=== PATIENT | female | born 1935 | race Caucasian/White ===

== ENCOUNTER 2022-09-14 21:27 | Inpatient (IN) | payer MEDICARE, OTHER ==
[~2022-09-14] VITALS: Ht 162.6 cm; Wt 62.6 kg
--- NOTE | 2022-09-14 21:35 | NUR ---
[id number] AND SON FROM HOME, S/P SLIP & FALL IN KITCHEN, C/O RIGHT HIP PAIN 10/28 VICE PRESIDENT RISK MANAGEMENT. PT AAOX4, IN NAD. PLACED COMFORTABLY IN BED, VITALS CHECKED.
--- NOTE | 2022-09-14 21:46 | NUR ---
20GA TO RIGHT FOREARM ESTABLISHED
[2022-09-14] MEDS ORDERED: ONDANSETRON HCL/PF 4 MG/2 ML VIAL ONE (21:52)
[2022-09-14] MEDS ORDERED: MORPHINE SULFATE INJ 4 MG/ML DISP.SYRIN ONE (21:52)
[2022-09-14] MEDS ORDERED: MORPHINE SULFATE INJ 2 MG/ML DISP.SYRIN IV ONE (22:00)
[2022-09-14] MEDS ORDERED: ONDANSETRON HCL/PF 4 MG/2 ML VIAL IV ONE (22:00)
--- NOTE | 2022-09-14 22:31 | NUR ---
XR AT BEDSIDE
--- NOTE | 2022-09-14 23:03 | NUR ---
COVID SWAB COLLECTED, SENT TO LAB
--- NOTE | 2022-09-14 23:08 | NUR ---
EKG DONE AT BEDSIDE
--- NOTE | 2022-09-14 23:39 | NUR ---
SPRAYER HAND AT BEDSIDE
--- NOTE | 2022-09-15 00:01 | NUR ---
room [id number]
[2022-09-15 00:03] LABS: BASOPHILS % (AUTO) 0.2 % (0.0-2.0); EOSINOPHILS % (AUTO) 0.1 % (0.0-6.0); HEMATOCRIT 33 % (33-45); HEMOGLOBIN 10.9 g/dL (11.5-14.8); LYMPHOCYTES # (AUTO) 0.8 K/uL (0.8-4.8); LYMPHOCYTES % (AUTO) 6.6 % (20.0-44.0); MEAN CORPUSCULAR HGB CONC 33 g/dl (31.0-36.0); MEAN CORPUSCULAR VOLUME 97 fL (82-100); MONOCYTES # (AUTO) 0.7 K/uL (0.1-1.30); MONOCYTES % (AUTO) 5.8 % (2.0-12.0); NEUTROPHILS # (AUTO) 11.1 K/uL (1.8-8.9); NEUTROPHILS % (AUTO) 87.3 % (43.0-81.0); PLATELET COUNT (AUTO) 226 K/uL (150-450); RED BLOOD CELL COUNT(AUTO) 3.42 MIL/uL (4.0-5.2); WHITE BLOOD COUNT (AUTO) 12.7 K/uL (4.3-11.0)
[2022-09-15] MEDS ORDERED: ONDANSETRON HCL/PF 4 MG/2 ML VIAL ONE (00:04)
[2022-09-15] MEDS ORDERED: HYDROCODONE/APAP 5/325MG TABLET PO PRN (00:30)
[2022-09-15] MEDS ORDERED: ONDANSETRON HCL/PF 4 MG/2 ML VIAL IVP ONE (00:30)
[2022-09-15] MEDS ORDERED: Z GUARD REMEDY 4 OZ OINT TP PRN (00:30)
[2022-09-15] MEDS ORDERED: MAGNESIUM HYDROXIDE 30 ML UDC PO PRN (00:30)
[2022-09-15] MEDS ORDERED: MORPHINE SULFATE INJ 2 MG/ML DISP.SYRIN IV PRN (00:30)
[2022-09-15] MEDS ORDERED: ZOLPIDEM TARTRATE 5 MG TABLET PO PRN (00:30)
[2022-09-15] MEDS ORDERED: MAG HYDROX/AL HYDROX/SIMETH 30 ML UDC PO PRN (00:30)
--- NOTE | 2022-09-15 00:30 | NUR ---
REPORT GIVEN TO SHREE LUU
--- NOTE | 2022-09-15 00:33 | NUR ---
LAB CALLED FOR COVID ANTIGEN RESULT; STILL NOT RESULTED
[2022-09-15 00:36] LABS: CALCIUM, SERUM 8.9 mg/dL (8.5-10.1); CARBON DIOXIDE 23 mmol/L (21-32); CHLORIDE 104 mmol/L (98-107); CREATININE 0.7 mg/dL (0.6-1.3); GLUCOSE 112 mg/dL (74-106); POTASSIUM 3.8 mmol/L (3.5-5.1); SODIUM SERUM 138 mmol/L (136-145); UREA NITROGEN, BLOOD 20 mg/dL (7-18)
--- NOTE | 2022-09-15 01:15 | NUR ---
MS METAL WASHING MACHINE OPERATOR NOTES RECEIVED NEW ADMIT THIS 86 YO FEMALE,ACCOMPANIED BY SON ULISSES.ALERT,ORIENTED X3-4,FARSI SPEAKING,ALL INFORMATION TAKEN FROM SON.CHIEF COMPLAINTS OF RIGHT HIP PAIN,S/P SLIPPED AND FALL AT HOME IN THE KITCHEN,SUSTAINED FRACTURE ON RIGHT PUBIC RAMUS.NO SKIN ISSUES.WITH RIGHT FORE ARM SALINE LOCK INTACT AND PATENT.VACCINATED COMPLETELY WITH COVID VACCINE.VITAL SIGNS STABLE.CALL LIGHT IN REACH,NEEDS ANTICIPATED.
[2022-09-15 01:25] VITALS: BP 125/63
[2022-09-15 01:30] VITALS: BP 125/63
--- NOTE | 2022-09-15 01:30 | NUR ---
MS RN NOTES PUREWICK STARTED CONNECTED TO WALL SUCTION.
--- NOTE | 2022-09-15 02:15 | NUR ---
MS RN NOTES BLOOD PRESSURE READING THIS TIME 98/55. HOSPITALIST MADE AWARE WITH ORDERS NOTED AND CARRIED OUT.
[2022-09-15] MEDS ORDERED: IV NS 0.9% 500 ML IV ONE (02:30)
--- NOTE | 2022-09-15 02:33 | NUR ---
MS RN NOTES NS 500ML BOLUS WIDE OPEN STARTED,WITH ORDERS BY HOSPITALIST SHAD
--- NOTE | 2022-09-15 03:00 | NUR ---
MS RN NOTES NS BOLUS 500ML COMPLETED.NO FLUID OVERLOAD NOTED,BP RE CHECK WAS 107/63,PULSE- 77.
[2022-09-15] MEDS: IV NS 0.9% 1,000 ML IV PRN ×2 (03:11→15:42)
--- NOTE | 2022-09-15 03:11 | NUR ---
MS RN NOTES MAIN IVF NS AT 75ML/HR RATE STARTED.
[2022-09-15] MEDS ORDERED: NITROFURANTOIN MACROCRYSTAL 50 MG CAPSULE PO SCH (06:00)
[2022-09-15 06:29] LABS: BASOPHILS % (AUTO) 0.1 % (0.0-2.0); EOSINOPHILS % (AUTO) 0.1 % (0.0-6.0); HEMATOCRIT 30 % (33-45); HEMOGLOBIN 9.9 g/dL (11.5-14.8); LYMPHOCYTES # (AUTO) 0.5 K/uL (0.8-4.8); LYMPHOCYTES % (AUTO) 4.4 % (20.0-44.0); MEAN CORPUSCULAR HGB CONC 33 g/dl (31.0-36.0); MEAN CORPUSCULAR VOLUME 97 fL (82-100); MONOCYTES # (AUTO) 0.5 K/uL (0.1-1.30); MONOCYTES % (AUTO) 4.4 % (2.0-12.0); NEUTROPHILS # (AUTO) 10.4 K/uL (1.8-8.9); PLATELET COUNT (AUTO) 208 K/uL (150-450); RED BLOOD CELL COUNT(AUTO) 3.06 MIL/uL (4.0-5.2); WHITE BLOOD COUNT (AUTO) 11.4 K/uL (4.3-11.0)
[2022-09-15] MEDS: ACETAMINOPHEN 325 MG TABLET PO PRN (06:42)
--- NOTE | 2022-09-15 06:42 | NUR ---
MS RN NOTES C/O HEADACHE,TYLENOL 650MG PO GIVEN ORDERED.NO N/V NOTED.
[2022-09-15 06:49] LABS: CALCIUM, SERUM 8.2 mg/dL (8.5-10.1); CREATININE 0.7 mg/dL (0.6-1.3); MAGNESIUM 1.8 mg/dL (1.8-2.4); PHOSPHORUS 4.7 mg/dL (2.5-4.9); POTASSIUM 3.9 mmol/L (3.5-5.1)
[2022-09-15 06:57] LABS: THYROID STIMULATING HORMONE 0.664 uIU/mL (0.358-3.74)
--- NOTE | 2022-09-15 07:00 | NUR ---
MS RN NOTES NO ACTIVE N/V NOTED.INCONTINENT OF URINE.IN NO ACUTE DISTRESS.WILL ENDORSE TO DAY NURSE FOR MCKENZIE.
--- NOTE | 2022-09-15 07:46 | NUR ---
RN OPENING NOTES RECIEVED PATIENT LYING ON BED A/O X4, FARSI SPEAKING. ON ROOM AIR WITH NO SOB OR RESPIRATORY DISTRESS NOTED. WITH IV ACCESS ON RIGHT FOREMARM #20G, INFUSING D5NS AT 75L/HR. KEPT PATIENT COMFORTABLE IN BED, CURRENTLY PATIENT IS NOT IN PAIN. SAFETY PRECAUTION MAINTAINED: BED IN LOWEST LOCKED POSITION, SIDERAILS ARE UP X2, CALL LIGHT WITHIN REACH. WILL CONTINUE TO MONITOR.
[2022-09-15] MEDS: predniSONE 1 MG TABLET PO SCH (08:41)
[2022-09-15] MEDS: NITROFURANTOIN/MONOHYDRATE MACROCRYSTALS 100 MG CAPSULE PO SCH ×2 (08:41→21:42)
[2022-09-15] MEDS: ENOXAPARIN SODIUM 40 MG/0.4 ML DISP.SYRIN SQ SCH (08:46)
[2022-09-15] MEDS ORDERED: AMLODIPINE BESYLATE 5 MG TABLET PO SCH (09:00)
[2022-09-15] MEDS ORDERED: LOSARTAN POTASSIUM 50 MG TABLET PO SCH (09:00)
[2022-09-15] MEDS: ONDANSETRON HCL/PF 4 MG/2 ML VIAL IVP PRN ×2 (09:29→16:29)
[2022-09-15] MEDS ORDERED: LOSA50TA39 PO (10:02)
[2022-09-15] MEDS ORDERED: AMLO-212 PO (10:02)
[2022-09-15] MEDS ORDERED: NITR50CA51 PO (10:02)
[2022-09-15] MEDS ORDERED: ALPR0.5T8 PO (10:02)
[2022-09-15] MEDS ORDERED: METH2.5T14 PO (10:02)
[2022-09-15] MEDS ORDERED: UPAD15TA PO (10:02)
[2022-09-15 10:54] VITALS: BP 122/69
[2022-09-15] MEDS ORDERED: FLUO10CA26 PO (11:52)
[2022-09-15] MEDS ORDERED: PRED1TAB PO (11:52)
[2022-09-15] MEDS ORDERED: ATOR40TA PO (11:54)
--- NOTE | 2022-09-15 13:00 | NUR ---
RN NOTE FAMILY WAS NOTIFIED TO BRING HER MEDICATION RINVOQ.
[2022-09-15 16:28] VITALS: BP 132/70
[2022-09-15] MEDS: LOSARTAN POTASSIUM 50 MG TABLET PO SCH (16:50)
--- NOTE | 2022-09-15 18:52 | NUR ---
RN CLOSING NOTE PATIENT IS ON BED A/O X4 FARSI SPEAKING, ON MODERATE HIGH BACK REST. ON ROOM AIR NO SOB AND RESPIRATORY DISTRESS. WITH IV ACCESS ON HER RIGHT FOREARM #20G INFUSING TO NS AT 75ML/HR, INTACT AND PATENT. KEPT PATIENT COMFORTABLE. SAFETY PRECAUTION IN PLACE, BED ON LOWEST LOCKED POSITION, SIDERAILS UP X2, CALL LIGHT WITHIN REACH. ALL NEEDS ARE MET AT THIS TIME.
--- NOTE | 2022-09-15 19:35 | NUR ---
RN Opening Note Received patient in bed; awake, alert and oriented x 4. Farsi speaking. On room air; tolerating well. Not in any form of respiratory or cardiac distress noted at this time. No c/o pain or discomfort. With IV access on right forearm 20g; patent and intact infusing with NS 1L regulated @ 75 ml/hr; flushes well. Able to make needs known. Safety precautions implemented: call light and table within reach, side rails up x 3, bed in lowest locked position. Will continue to monitor throughout shift.
[2022-09-15 20:00] VITALS: BP 126/65
[2022-09-15 20:28] VITALS: BP 126/65
[2022-09-15] MEDS: ATORVASTATIN 40 MG TABLET PO SCH (21:42)
[2022-09-16] MEDS: IBUPROFEN 600 MG TABLET PO PRN ×3 (00:33→20:58)
--- NOTE | 2022-09-16 00:33 | NUR ---
RN Note Patient complained of pain on her head (while holding her head). PRN Motrin 600 mg 1 tab given po as ordered; tolerated well. Will continue to monitor and reassess patient.
[2022-09-16] MEDS: ALPRAZOLAM 0.5 MG TABLET PO PRN ×2 (01:22→23:40)
[2022-09-16 05:53] LABS: BASOPHILS % (AUTO) 0.2 % (0.0-2.0); EOSINOPHILS % (AUTO) 0.5 % (0.0-6.0); HEMATOCRIT 29 % (33-45); HEMOGLOBIN 9.7 g/dL (11.5-14.8); LYMPHOCYTES # (AUTO) 0.7 K/uL (0.8-4.8); LYMPHOCYTES % (AUTO) 8.9 % (20.0-44.0); MEAN CORPUSCULAR HGB CONC 33 g/dl (31.0-36.0); MEAN CORPUSCULAR VOLUME 99 fL (82-100); MONOCYTES # (AUTO) 0.4 K/uL (0.1-1.30); NEUTROPHILS # (AUTO) 7.1 K/uL (1.8-8.9); NEUTROPHILS % (AUTO) 85.4 % (43.0-81.0); PLATELET COUNT (AUTO) 189 K/uL (150-450); RED BLOOD CELL COUNT(AUTO) 2.97 MIL/uL (4.0-5.2); WHITE BLOOD COUNT (AUTO) 8.3 K/uL (4.3-11.0)
[2022-09-16 05:58] LABS: CALCIUM, SERUM 7.9 mg/dL (8.5-10.1); CREATININE 0.6 mg/dL (0.6-1.3); POTASSIUM 3.9 mmol/L (3.5-5.1)
--- NOTE | 2022-09-16 06:50 | NUR ---
RN Closing Note Patient in bed; awake, a/o x 4. Stable on room air. In no acute distress. Denies any pain or discomfort. With IV access on right wrist 20g; patent and intact infusing with NS 1L regulated @ 75 ml/hr; flushes well. All needs attended. All due meds given as ordered. Safety precautions maintained: call light and table within reach, side rails up x 2, bed in lowest locked position. Endorsed to morning shift for continuity of care.
--- NOTE | 2022-09-16 07:30 | NUR ---
RN MS NOTES PT IN BED, AWAKE, ALERT AND ORIENTED, NO COMPLAINT OF PAIN AT THIS TIME, RESPIRATIONS NORMAL, CALL LIGHT WITHIN REACH, IV FLUIDS INFUSING WELL, KEPT WARM AND COMFORTABLE IN BED.
[2022-09-16 08:25] VITALS: BP 139/68
[2022-09-16] MEDS: predniSONE 1 MG TABLET PO SCH ×2 (08:30→09:00)
[2022-09-16] MEDS: AMLODIPINE BESYLATE 5 MG TABLET PO SCH (08:30)
[2022-09-16] MEDS: NITROFURANTOIN/MONOHYDRATE MACROCRYSTALS 100 MG CAPSULE PO SCH ×2 (08:30→20:58)
[2022-09-16] MEDS: LOSARTAN POTASSIUM 50 MG TABLET PO SCH ×2 (08:30→16:52)
[2022-09-16] MEDS: ENOXAPARIN SODIUM 40 MG/0.4 ML DISP.SYRIN SQ SCH (08:31)
--- NOTE | 2022-09-16 11:03 | NUR ---
RN MS NOTES PT SEEN BY PHYSICAL THERAPIST, PAIN MEDS GIVEN PRIOR, TOLERATED ACTIVITY WELL, SON DR. GTZ AT BEDSIDE, DISCHARGE PLAN DISCUSSED WITH SHOP SERVICE TECHNICIAN CAMILO.
[2022-09-16] MEDS: HOME MED MISCELLANEOUS PO SCH (13:41)
[2022-09-16 15:53] VITALS: BP 125/72
--- NOTE | 2022-09-16 18:02 | NUR ---
RN MS NOTES PT IN BED, AWAKE, ALERT AND ORIENTED, EATING DINNER, VISITED BY FAMILY MEMBERS, NO COMPLAINT OF PAIN OR ANY DISCOMFORT, BREATHING PATTERN NORMAL, CALL LIGHT WITHIN REACH AT ALL TIMES, PM CARE PROVIDED, REPOSITIONED FOR COMFORT, ALL NEEDS ATTENDED.
--- NOTE | 2022-09-16 19:35 | NUR ---
MSRN ASLEEP, EASILY AWAKENED WHEN CALLED. APPEARS COMFORTABLE. NO NEEDS OF THIS TIME, KEPT COMFORTABLE. CLOSELY WATCHED.
[2022-09-16 20:00] VITALS: BP 143/80
--- NOTE | 2022-09-16 21:00 | NUR ---
MSRN VERBALIZES RIGHT PELVIC PAIN WANTED MOTRIN. ADMINISTERED ORDERED. POSITIONED PER PATIENTS COMFORT.
[2022-09-16] MEDS: ATORVASTATIN 40 MG TABLET PO SCH (21:07)
--- NOTE | 2022-09-16 23:40 | NUR ---
MSRN REQUESTED FOR XANAX.ADMINISTERED. REPOSITIONED PER PT COMFORT SUPPORTED WITH PILLOWS. KEPT CLEAN DRY AND COMFORTABLE.
--- NOTE | 2022-09-17 06:54 | NUR ---
MSRN NO OTHER NEEDS MADE. SLEPT WELL POST XANAX.
--- NOTE | 2022-09-17 07:30 | NUR ---
Pt is A,A,Ox 4. Denies pain, all needs are met at this time.
--- NOTE | 2022-09-17 07:30 | NUR ---
RN MS NOTES PT IN BED, AWAKE, ALERT AND ORIENTED, NO COMPLAINT OF PAIN AT THIS TIME, BREATHING PATTERN NORMAL, CALL LIGHT WITHIN REACH, REPOSITIONED FOR COMFORT, ASSISTED WITH BREAKFAST.
[2022-09-17 08:00] VITALS: BP 111/55
[2022-09-17] MEDS: AMLODIPINE BESYLATE 5 MG TABLET PO SCH (09:00)
[2022-09-17] MEDS: LOSARTAN POTASSIUM 50 MG TABLET PO SCH ×2 (09:00→17:06)
[2022-09-17] MEDS: HOME MED MISCELLANEOUS PO SCH (09:11)
[2022-09-17] MEDS: NITROFURANTOIN/MONOHYDRATE MACROCRYSTALS 100 MG CAPSULE PO SCH ×2 (09:11→21:07)
[2022-09-17] MEDS: predniSONE 1 MG TABLET PO SCH (09:13)
[2022-09-17] MEDS: ENOXAPARIN SODIUM 40 MG/0.4 ML DISP.SYRIN SQ SCH (09:26)
[2022-09-17] MEDS: IBUPROFEN 600 MG TABLET PO PRN (10:39)
--- NOTE | 2022-09-17 11:30 | NUR ---
RN MS NOTES PT IN BED, AWAKE, ALERT AND ORIENTED, PAIN MEDICATION GIVEN FOR PAIN MANAGEMENT, ASSISTED WITH LUNCH, PT HAD PHYSICAL THERAPY TREATMENT, TOLERATED WELL, KEPT COMFORTABLE IN BED.
[2022-09-17 16:05] VITALS: BP 148/72
--- NOTE | 2022-09-17 18:30 | NUR ---
183: RN MS CLOSING NOTES PT IN BED IN SEMI-JENSEN'S POSITION, AWAKE, ALERT & ORIENTED X 4, WATCHING TV. BED RAILS UP, CALL LIGHT WITHIN REACH. RESPIRATIONS ARE EVEN AND UNLABORED. PT DENIES PAIN AT THIS TIME. PT CONSUMED 90 PERCENT OF HER DINNER. ALL NEEDS ARE MET AT THIS TIME.
--- NOTE | 2022-09-17 19:23 | NUR ---
MS RN OPENING NOTE RECEIVED PT AWAKE IN BED, LISTENING TO MUSIC. A/O X4, FARSI SPEAKING, AND ABLE TO MAKE NEEDS KNOWN. PT STABLE ON ROOM AIR, TOLERATING WELL. NO SOB OR S/S OF RESPIRATORY DISTRESS. BREATHING EVEN AND UNLABORED. IV ACCESS R WRIST 20G SL, INTACT AND PATENT. NO COMPLAINTS OF PAIN OR DISCOMFORT AT THIS TIME. SAFETY PRECAUTIONS IN PLACE. BED IN LOWEST LOCKED POSITION, HOB ELEVATED, SIDE RAILS UP X2, AND CALL LIGHT AND TABLE WITHIN REACH. ALL NEEDS MET AT THIS TIME.
[2022-09-17 19:54] VITALS: BP 138/64
[2022-09-17] MEDS: ATORVASTATIN 40 MG TABLET PO SCH (21:07)
[2022-09-17] MEDS: ALPRAZOLAM 0.5 MG TABLET PO PRN (21:07)
--- NOTE | 2022-09-17 21:08 | NUR ---
RN NOTE PT REQUESTED XANAX. ADMINISTERED XANAX 0.5 MG FOR ANXIETY ORDERED. MADE COMFORTABLE IN BED. ALL NEEDS MET AT THIS TIME.
--- NOTE | 2022-09-18 06:25 | NUR ---
MS RN CLOSING NOTE PT AWAKE IN BED. A/O X4, FARSI SPEAKING, AND ABLE TO MAKE NEEDS KNOWN. PT STABLE ON ROOM AIR, TOLERATING WELL. NO SOB OR S/S OF RESPIRATORY DISTRESS. BREATHING EVEN AND UNLABORED. IV ACCESS R WRIST 20G SL, INTACT AND PATENT. NO COMPLAINTS OF PAIN OR DISCOMFORT AT THIS TIME. ALL DUE MEDS GIVEN ORDERED. KEPT CLEAN AND DRY. SAFETY PRECAUTIONS IN PLACE AT ALL TIMES. BED IN LOWEST LOCKED POSITION, HOB ELEVATED, SIDE RAILS UP X2, AND CALL LIGHT AND TABLE WITHIN REACH. ALL NEEDS MET AT THIS TIME AND WILL ENDORSE TO ONCOMING NURSE FOR MCKENZIE.
--- NOTE | 2022-09-18 07:25 | NUR ---
RN OPENING NOTE RECEIVED PATIENT IN BED AWAKE, A/O X4. VERBALLY RESPONSIVE, FARSI SPEAKING, ABLE TO UNDERSTAND SIMPLE [place]. NO SIGNS OF ACUTE DISTRESS NOTED. ON ROOM AIR, NO SOB NOTED, BREATHING EVEN AND UNLABORED. PATIENT DENIES ANY PAIN AT THIS TIME. NOTED WITH IV ACCESS ON RIGHT WRIST #20G, INTACT AND PATENT, SALINE LOCKED. SAFETY MEASURE IN PLACE. BED IN LOW AND LOCKED POSITION, SIDE RAILS UP X2, CALL LIGHT PLACED WITHIN EASY REACH. WILL CONTINUE TO MONITOR PATIENT.
[2022-09-18 07:30] VITALS: BP 157/86
[2022-09-18] MEDS: IBUPROFEN 600 MG TABLET PO PRN (08:41)
[2022-09-18] MEDS: HOME MED MISCELLANEOUS PO SCH (08:41)
[2022-09-18] MEDS: NITROFURANTOIN/MONOHYDRATE MACROCRYSTALS 100 MG CAPSULE PO SCH ×2 (08:41→21:23)
[2022-09-18] MEDS: LOSARTAN POTASSIUM 50 MG TABLET PO SCH ×2 (08:42→16:31)
[2022-09-18] MEDS: predniSONE 1 MG TABLET PO SCH (08:42)
[2022-09-18] MEDS: ENOXAPARIN SODIUM 40 MG/0.4 ML DISP.SYRIN SQ SCH (08:43)
[2022-09-18 16:00] VITALS: BP 138/75
[2022-09-18] MEDS: AMLODIPINE BESYLATE 5 MG TABLET PO SCH (16:32)
--- NOTE | 2022-09-18 18:58 | NUR ---
RN CLOSING NOTE PATIENT IN BED AWAKE, A/O X4. VERBALLY RESPONSIVE, FARSI SPEAKING, ABLE TO UNDERSTAND SIMPLE [place]. NO SIGNS OF ACUTE DISTRESS NOTED. REMAINS STABLE ON ROOM AIR, NO SOB NOTED, BREATHING EVEN AND UNLABORED. MEDICATED FOR PAIN ORDERED. WITH IV ACCESS ON RIGHT WRIST #20G, INTACT AND PATENT, SALINE LOCKED. ALL DUE MEDS GIVEN. ALL NEEDS ATTENDED. SAFETY MEASURE MAINTAINED. BED IN LOW AND LOCKED POSITION, SIDE RAILS UP X2, CALL LIGHT PLACED WITHIN EASY REACH. WILL ENDORSE TO NEXT SHIFT FOR CONTINUITY OF CARE.
--- NOTE | 2022-09-18 19:20 | NUR ---
MS RN OPENING NOTES - RECEIVED PATIENT AWAKE, HOB IN SEMI-JENSEN'S. A/O X3. BREATHING EVEN AND NON-LABORED ON ROOM AIR. C/O MILD RIGHT HIP PAIN AT THIS TIME. HAS RIGHT WRIST IV ACCESS #20G AND SALINE LOCKED. NO S/S OF INFILTRATION NOTED. HAS PUREWICK CONNECTED TO CONTINUOUS SUCTION. SAFETY PRECAUTIONS IN PLACE: BED LOCKED AND IN LOW POSITION, SIDE RAILS UP X2, CALL LIGHT WITHIN REACH. WILL CONTINUE PLAN OF CARE.
[2022-09-18 20:00] VITALS: BP 132/73
[2022-09-18] MEDS: ATORVASTATIN 40 MG TABLET PO SCH (21:23)
[2022-09-18] MEDS: ALPRAZOLAM 0.5 MG TABLET PO PRN (21:23)
[2022-09-19] MEDS: IBUPROFEN 600 MG TABLET PO PRN ×2 (01:55→09:26)
--- NOTE | 2022-09-19 01:55 | NUR ---
C/O MODERATE RIGHT HIP PAIN, PATIENT REQUESTED FOR MOTRIN. ADMINISTERED AND TOLERATED WELL. REPOSITIONED AND OFFLOADED RIGHT HIP.
[2022-09-19 04:00] VITALS: BP 136/72
[2022-09-19] MEDS: ACETAMINOPHEN 325 MG TABLET PO PRN (05:38)
--- NOTE | 2022-09-19 05:40 | NUR ---
C/O MILD RIGHT HIP PAIN, PRN TYLENOL 650MG GIVEN. WILL CONTINUE TO MONITOR.
--- NOTE | 2022-09-19 06:35 | NUR ---
MS RN CLOSING NOTES - PATIENT RESTING IN BED, ABLE TO VERBALIZE NEEDS. NO RESPIRATORY OR CARDIAC DISTRESS THROUGHOUT THE NIGHT. SATURATING WELL ON ROOM AIR. NO C/O PAIN OR DISCOMFORT AT THIS TIME. AFEBRILE. RIGHT WRIST IV ACCESS INTACT, PATENT AND FLUSHING. CLEAR TEA-COLORED URINE OUTPUT NOTED. ALL DUE MEDS GIVEN AND NEEDS ATTENDED. SAFETY PRECAUTIONS MAINTAINED. WILL ENDORSE TO AM RN FOR MCKENZIE.
--- NOTE | 2022-09-19 08:22 | NUR ---
RN MS OPENING NOTES RECEIVED PATIENT SLEEPING IN BED, APPEARS COMFORTABLE. NO S/S OF PAIN OR DISTRESS. PT ON ROOM AIR, RESPIRATIONS UNLABORED AND EVEN, RESPIRATORY RATE WNL. PT HAS RIGHT WRIST IV ACCESS, IV ACCESS INTACT, PATENT AND FLUSHING. BED IN LOW POSITION, CALL LIGHT WITHIN REACH, WILL CONTINUE CURRENT PLAN OF CARE
[2022-09-19 09:19] VITALS: BP 128/76
[2022-09-19] MEDS: AMLODIPINE BESYLATE 5 MG TABLET PO SCH (09:22)
[2022-09-19] MEDS: NITROFURANTOIN/MONOHYDRATE MACROCRYSTALS 100 MG CAPSULE PO SCH (09:23)
[2022-09-19] MEDS: predniSONE 1 MG TABLET PO SCH (09:23)
[2022-09-19 09:25] VITALS: BP 128/76
[2022-09-19] MEDS: LOSARTAN POTASSIUM 50 MG TABLET PO SCH (09:25)
[2022-09-19] MEDS: ENOXAPARIN SODIUM 40 MG/0.4 ML DISP.SYRIN SQ SCH (09:26)
[2022-09-19] MEDS ORDERED: TAPE100T2 PO (12:05)
--- NOTE | 2022-09-19 12:36 | NUR ---
RN MS NOTES PT IN BED, AWAKE, ALERT AND ORIENTED, NO COMPLAINT OF PAIN, BREATHING PATTERN NORMAL, CALL LIGHT WITHIN REACH, DISCHARGE ORDER GIVEN BY DR. LUIS, DISCHARGE AND MEDICATION INSTRUCTIONS PROVIDED TO PT AND SON DR. GTZ WHO IS AT BEDSIDE, VERBALIZED UNDERSTANDING, BELONGINGS ACCOUNTED FOR, REPORT GIVEN TO [facility], PICKED UP BY 2 AMBULANCE PERSONNEL, LEFT VIA GUERNEY IN STABLE CONDITION.
== END 2022-09-19 12:30 | DRG 536 ==
LOC: ER 21:33 → MED 09-15 00:11
PROVIDERS: ADMIT Nurse Practitioner Acute Care
DX: S32.810A Multiple fractures of pelvis with stable disruption of pelvic ring, initial encounter for closed fracture (principal); W01.198A Fall on same level from slipping, tripping and stumbling with subsequent striking against other object, initial encounter; Y92.000 Kitchen of unspecified non-institutional (private) residence as the place of occurrence of the external cause; E78.5 Hyperlipidemia, unspecified; M06.9 Rheumatoid arthritis, unspecified; Z20.822 Contact with and (suspected) exposure to COVID-19; Y93.01 Activity, walking, marching and hiking; I10 Essential (primary) hypertension; Z96.652 Presence of left artificial knee joint; Z79.899 Other long term (current) drug therapy
CPT/HCPCS: 36415; 70450-TC; 71045-TC; 73502; 73700-TC; 80048-TC; 80061-TC; 83735-TC; 84100-TC; 84443-TC; 85025-TC; 85730-TC; 87081-TC; 97110-TC; 97530-TC; G0378; J1650; J2270; J2405; J7030; J7040; J7512